=== PATIENT | male | born 1940 | race African-American/Black ===

== ENCOUNTER 2020-03-10 04:23 | Day surgery (SDC) | payer OTHER ==
[2020-03-09 10:13] VITALS: BMI 32.3
[2020-03-10] MEDS ORDERED: PROPOFOL 20 ML ONE (07:02)
[2020-03-10] MEDS ORDERED: LIDOCAINE HCL/PF 2% SDV 5ML VIAL ONE (07:02)
[2020-03-10] MEDS ORDERED: MIDAZOLAM HCL 2 MG/2 ML SINGLE DOSE VIAL ONE (07:03)
[2020-03-10] MEDS ORDERED: GENTAMICIN SO4 80 MG/2 ML VIAL ONE (07:32)
[2020-03-10] MEDS ORDERED: ceFAZolin SODIUM 1 GM VIAL IVPB ONE (07:46)
[2020-03-10] MEDS ORDERED: ceFAZolin SODIUM 1 GM VIAL ONE (07:46)
[2020-03-10] MEDS ORDERED: GENTAMICIN SO4 80 MG/2 ML VIAL IVPB ONE (07:47)
[2020-03-10] MEDS ORDERED: DESFLURANE GAS 240 ML BOTTLE IH ONE (07:56)
[2020-03-10] MEDS ORDERED: oxyCODONE HCL 5 MG TABLET PO PRN ×2 (08:13→09:04)
[2020-03-10] MEDS ORDERED: DEXTROSE 5%-0.45% SALINE 1,000 ML IV SCH (08:15)
[2020-03-10] MEDS ORDERED: LACTATED RINGERS SOLUTION 1,000 ML IV SCH (09:15)
[2020-03-10] MEDS ORDERED: hydrALAZINE HCL 20 MG/ML VIAL IVPUSH ONE ×4 (09:30→10:15)
[2020-03-10] MEDS ORDERED: oxyCODONE HCL 5 MG TABLET ONE (11:22)
[2020-03-10] MEDS ORDERED: LOSARTAN POTASSIUM 50 MG TABLET PO ONE (13:04)
[2020-03-10] MEDS ORDERED: PHENAZOPYRIDINE HCL 100 MG TABLET (FP) ONE (15:25)
[2020-03-10 17:36] VITALS: BP 186/102; PULSE 91; TEMP 98.7
== END 2020-03-10 17:30 | disposition home or self-care (01) ==
LOC: JASU-SURG 04:23
PROVIDERS: ATTEND Urology
PROC: 0T5B8ZZ Destruction of Bladder, Via Natural or Artificial Opening Endoscopic (ICD-10-PCS; principal; 2020-03-10 07:30)
DX: C67.9 Malignant neoplasm of bladder, unspecified (principal)
CPT/HCPCS: 88307-TC; 94760